=== PATIENT | female | born 1995 | race Caucasian/White ===

== ENCOUNTER → 2022-02-01 17:07 | Outpatient (CLI) | payer OTHER, SELFPAY ==
--- NOTE | ~2022-02-01 | MR_ITS ---
. EXAMINATION: MR shoulder LT wo con DATE: 02/01/2022 17:50 INDICATION: Acute pain of left shoulder. TECHNIQUE: Magnetic resonance imaging (MRI) of the left shoulder was performed without intravenous co ntrast. Sequences included axial PD-weighted FS FSE, coronal oblique PD-weighted FS FSE and T2-weight ed FS FSE, and sagittal oblique T2-weighted FS FSE and T1-weighted FSE. COMPARISON: None. FINDINGS: Coracoacromial arch: The acromion undersurface is curved in morphology (type II). There is mild acromioclavicular joint os teoarthritis. There is mild subacromial/subdeltoid bursitis. Rotator cuff: There is mild supraspinatus and infraspinatus tendinopathy. Teres minor tendon is normal. Subscapular is tendon is normal. There is no asymmetric fatty atrophy of the rotator cuff muscle bellies. Biceps tendon and glenoid labrum: Biceps tendon is in bicipital groove. Intra-articular biceps tendon is normal. The glenoid labrum is normal. Fluid: There is no glenohumeral joint effusion. Bones/cartilage: Glenoid cartilage is normal. Humeral head cartilage is normal. IMPRESSION: 1. Moderate rotator cuff tendinopathy. No tear. 2. Mild subacromial/subdeltoid bursitis. 3. Mild acromioclavicular joint osteoarthritis. Reviewed, dictated and finalized at location A.
== END ==
PROVIDERS: PCP Family Medicine; Visit Provider Orthopaedic Surgery
DX: M19.012 Primary osteoarthritis, left shoulder (principal); M75.52 Bursitis of left shoulder
CPT/HCPCS: 73221